=== PATIENT | male | born 1950 | race Caucasian/White ===

== ENCOUNTER 2020-05-22 11:53 | Emergency (ER) | payer OTHER, SELFPAY ==
[~2020-05-22] VITALS: Ht 180.3 cm; Wt 77.1 kg
[2020-05-22 11:53] VITALS: BP_SYST 193
[2020-05-22 12:52] LABS: BASOPHILS # (AUTO) 0.1 K/uL (0.0-0.2); BASOPHILS % (AUTO) 0.9 % (0.0-2.0); EOSINOPHILS # (AUTO) 0.4 K/uL (0.0-0.4); EOSINOPHILS % (AUTO) 6.4 % (0.0-4.0); HEMATOCRIT 42.4 % (36-54); HEMOGLOBIN 14.3 g/dL (14.0-18.0); LYMPHOCYTES # (AUTO) 1.9 K/uL (1.0-5.5); LYMPHOCYTES % (AUTO) 30.2 % (20.5-51.5); MEAN CORPUSCULAR HEMOGLOBIN 30 pg (27-31); MEAN CORPUSCULAR HGB CONC 34 % (32-36); MEAN CORPUSCULAR VOLUME 90 fL (79.0-98.0); MONOCYTES # (AUTO) 0.5 K/uL (0.0-1.0); MONOCYTES % (AUTO) 7.5 % (1.7-9.3); NEUTROPHILS # (AUTO) 3.5 K/uL (1.8-7.7); PLATELET COUNT (AUTO) 260 K/uL (130-430); RED BLOOD CELL COUNT(AUTO) 4.74 MIL/uL (4.2-6.2); RED CELL DISTRIBUTION WIDTH 14.5 % (9.0-15.0); WHITE BLOOD COUNT (AUTO) 6.3 K/uL (4.8-10.8)
[2020-05-22 12:57] LABS: BILIRUBIN,URINE NEGATIVE (NEGATIVE); BLOOD, URINE NEGATIVE (NEGATIVE); CLARITY/URINE CLEAR (CLEAR); COLOR,URINE YELLOW (YELLOW); GLUCOSE,URINE NEGATIVE (NEGATIVE); KETONES,URINE NEGATIVE (NEGATIVE); LEUKOCYTE ESTERASE ,URINE NEGATIVE (NEGATIVE); NITRITE, URINE NEGATIVE (NEGATIVE); PH,URINE 6.5 (5.0-8.0); PROTEIN URINE NEGATIVE (NEGATIVE); UROBILINOGEN,URINE 0.2 (0.2-1.0)
[2020-05-22 13:05] LABS: ANION GAP 9 (5-15); CALCIUM 9.2 mg/dL (8.4-11.0); CHLORIDE 105 mmol/L (98-107); CREATININE 1.29 mg/dL (0.55-1.30); GLUCOSE 126 mg/dL (70-99); POTASSIUM 4.2 mmol/L (3.5-5.1); SODIUM SERUM 141 mmol/L (136-145); UREA NITROGEN, BLOOD 9 mg/dL (8-21)
[2020-05-22 13:11] LABS: ALANINE AMINOTRANSFERASE 32 U/L (12-78); ASPARTATE AMINOTRANSFERASE 25 U/L (10-37); TOTAL BILIRUBIN 0.2 mg/dL (0.0-1.0)
[2020-05-22 13:15] LABS: CHOLESTEROL 208 mg/dL (<200); HDL CHOLESTEROL 44 mg/dL (>45); LDL CHOLESTEROL 141 mg/dL (<100); TRIGLYCERIDES 267 mg/dL (30-150)
[2020-05-22 13:16] LABS: ACETAMINOPHEN < 1 ug/mL (1-30); ALCOHOL, BLOOD < 3 mg/dL (<10); GFR AFRICAN AMERICAN 71 mL/min (>90)
[2020-05-22 13:17] LABS: BARBITURATE, URINE NEGATIVE (NEG <=200); BENZODIAZEPINE, URINE NEGATIVE (NEG <=150); CANNABINOID, URINE NEGATIVE (NEG <=50); COCAINE, URINE NEGATIVE (NEG <=150); METHAMPHETAMINES SCREEN,URINE NEGATIVE (NEG <=500); OPIATE, URINE NEGATIVE (NEG <=100); PHENCYCLIDINE SCREEN,URINE NEGATIVE (NEG <=25); UR TRICYCLIC ANTIDEPRESSANTS NEGATIVE (NEG <=300); URINE AMPHETAMINE NEGATIVE (NEG <=500); URINE METHADONE NEGATIVE (NEG <=200); URINE OXYCODONE SCREEN NEGATIVE (NEG <=100); URINE PROPOXYPHENE SCREEN NEGATIVE (NEG <=300)
[2020-05-22 15:36] VITALS: BP_SYST 182
== END 2020-05-22 15:38 ==
LOC: SED 11:53
DX: Z13.30 Encounter for screening examination for mental health and behavioral disorders, unspecified (principal); Z20.822 Contact with and (suspected) exposure to COVID-19
CPT/HCPCS: 36415; 80053; 80061; 80307; 81003; 83036; 85025; 87081; 87426; 99285; G0480; G0481; G0482

== ENCOUNTER 2020-06-13 12:10 | Emergency (ER) | payer OTHER ==
[~2020-06-13] VITALS: Ht 170.2 cm; Wt 77.1 kg
[2020-06-13 12:29] VITALS: BP_SYST 170
[2020-06-13 13:05] LABS: BASOPHILS % (AUTO) 0.5 % (0.0-2.0); EOSINOPHILS # (AUTO) 0.3 K/uL (0.0-0.4); EOSINOPHILS % (AUTO) 5.8 % (0.0-4.0); HEMATOCRIT 41.8 % (36-54); HEMOGLOBIN 14.4 g/dL (14.0-18.0); LYMPHOCYTES # (AUTO) 1.3 K/uL (1.0-5.5); LYMPHOCYTES % (AUTO) 22.2 % (20.5-51.5); MEAN CORPUSCULAR HEMOGLOBIN 31 pg (27-31); MEAN CORPUSCULAR HGB CONC 35 % (32-36); MEAN CORPUSCULAR VOLUME 90 fL (79.0-98.0); MONOCYTES # (AUTO) 0.5 K/uL (0.0-1.0); MONOCYTES % (AUTO) 7.6 % (1.7-9.3); NEUTROPHILS # (AUTO) 3.8 K/uL (1.8-7.7); NEUTROPHILS % (AUTO) 63.9 % (40.0-70.0); PLATELET COUNT (AUTO) 271 K/uL (130-430); RED BLOOD CELL COUNT(AUTO) 4.65 MIL/uL (4.2-6.2); RED CELL DISTRIBUTION WIDTH 14.1 % (9.0-15.0)
[2020-06-13 13:10] LABS: BILIRUBIN,URINE NEGATIVE (NEGATIVE); BLOOD, URINE NEGATIVE (NEGATIVE); CLARITY/URINE CLEAR (CLEAR); COLOR,URINE YELLOW (YELLOW); GLUCOSE,URINE NEGATIVE (NEGATIVE); KETONES,URINE NEGATIVE (NEGATIVE); LEUKOCYTE ESTERASE ,URINE NEGATIVE (NEGATIVE); NITRITE, URINE NEGATIVE (NEGATIVE); PH,URINE 6.5 (5.0-8.0); PROTEIN URINE NEGATIVE (NEGATIVE); UROBILINOGEN,URINE 0.2 (0.2-1.0)
[2020-06-13 13:21] LABS: ANION GAP 6 (5-15); CALCIUM 9.7 mg/dL (8.4-11.0); CHLORIDE 107 mmol/L (98-107); CREATININE 1.42 mg/dL (0.55-1.30); GLUCOSE 112 mg/dL (70-99); POTASSIUM 4.2 mmol/L (3.5-5.1); SODIUM SERUM 144 mmol/L (136-145); UREA NITROGEN, BLOOD 10 mg/dL (8-21)
[2020-06-13 13:22] LABS: GFR AFRICAN AMERICAN 64 mL/min (>90)
[2020-06-13 13:23] LABS: BARBITURATE, URINE NEGATIVE (NEG <=200); BENZODIAZEPINE, URINE NEGATIVE (NEG <=150); CANNABINOID, URINE NEGATIVE (NEG <=50); COCAINE, URINE NEGATIVE (NEG <=150); METHAMPHETAMINES SCREEN,URINE NEGATIVE (NEG <=500); OPIATE, URINE NEGATIVE (NEG <=100); PHENCYCLIDINE SCREEN,URINE NEGATIVE (NEG <=25); UR TRICYCLIC ANTIDEPRESSANTS NEGATIVE (NEG <=300); URINE AMPHETAMINE NEGATIVE (NEG <=500); URINE METHADONE NEGATIVE (NEG <=200); URINE OXYCODONE SCREEN NEGATIVE (NEG <=100); URINE PROPOXYPHENE SCREEN NEGATIVE (NEG <=300)
[2020-06-13 13:27] LABS: ALANINE AMINOTRANSFERASE 36 U/L (12-78); ALBUMIN 4.3 g/dL (3.4-4.8); ASPARTATE AMINOTRANSFERASE 22 U/L (10-37); TOTAL BILIRUBIN 0.3 mg/dL (0.0-1.0)
[2020-06-13 13:28] LABS: ACETAMINOPHEN < 1 ug/mL (1-30); ALCOHOL, BLOOD < 3 mg/dL (<10)
[2020-06-13 13:40] LABS: CHOLESTEROL 194 mg/dL (<200); HDL CHOLESTEROL 50 mg/dL (>45); LDL CHOLESTEROL 129 mg/dL (<100); TRIGLYCERIDES 168 mg/dL (30-150)
[2020-06-13 14:20] VITALS: BP_SYST 165
== END 2020-06-13 14:10 | disposition designated cancer center or children's hospital (05) ==
LOC: SED 12:10
DX: Z13.30 Encounter for screening examination for mental health and behavioral disorders, unspecified (principal); Z20.822 Contact with and (suspected) exposure to COVID-19
CPT/HCPCS: 36415; 80053; 80061; 80307; 81003; 83036; 85025; 87081; 87426; 99285; G0480; G0481; G0482

== ENCOUNTER 2021-02-04 15:34 | Emergency (ER) | payer OTHER, MEDICAID, SELFPAY | END 2021-02-05 01:30 | disposition home or self-care (01) | LOC: SED 15:34 | DX: F20.9 Schizophrenia, unspecified (principal) | CPT/HCPCS: 99283 ==

== ENCOUNTER 2021-10-07 10:02 | Inpatient (IN) | payer OTHER, MEDICAID ==
[~2021-10-07] VITALS: Ht 177.8 cm; Wt 75.3 kg
[2021-10-07 10:05] VITALS: BP_SYST 148
[2021-10-07] MEDS ORDERED: IBUP-1969 PO (10:30)
[2021-10-07] MEDS ORDERED: ARIP2TAB3 PO (10:30)
[2021-10-07] MEDS ORDERED: SER100 PO (10:30)
[2021-10-07 11:32] LABS: BASOPHILS % (AUTO) 0.3 % (0.0-2.0); EOSINOPHILS # (AUTO) 0.1 K/uL (0.0-0.4); EOSINOPHILS % (AUTO) 0.9 % (0.0-4.0); HEMATOCRIT 43.1 % (36-54); HEMOGLOBIN 14.7 g/dL (14.0-18.0); LYMPHOCYTES # (AUTO) 1.6 K/uL (1.0-5.5); LYMPHOCYTES % (AUTO) 20.3 % (20.5-51.5); MEAN CORPUSCULAR HEMOGLOBIN 30 pg (27-31); MEAN CORPUSCULAR HGB CONC 34 % (32-36); MEAN CORPUSCULAR VOLUME 89 fL (79.0-98.0); MONOCYTES # (AUTO) 0.6 K/uL (0.0-1.0); MONOCYTES % (AUTO) 8.2 % (1.7-9.3); NEUTROPHILS # (AUTO) 5.4 K/uL (1.8-7.7); NEUTROPHILS % (AUTO) 70.3 % (40.0-70.0); PLATELET COUNT (AUTO) 253 K/uL (130-430); RED BLOOD CELL COUNT(AUTO) 4.85 MIL/uL (4.2-6.2); RED CELL DISTRIBUTION WIDTH 14.4 % (9.0-15.0); WHITE BLOOD COUNT (AUTO) 7.7 K/uL (4.8-10.8)
[2021-10-07 11:59] LABS: INR 1.1 (0.80-1.20); PROTHROMBIN TIME 11.6 SECS (9.5-12.5)
[2021-10-07 12:05] LABS: ANION GAP 7 (5-15); CALCIUM 9.3 mg/dL (8.4-11.0); CHLORIDE 106 mmol/L (98-107); CREATININE 1.67 mg/dL (0.55-1.30); GLUCOSE 96 mg/dL (70-99); POTASSIUM 3.9 mmol/L (3.5-5.1); SODIUM SERUM 142 mmol/L (136-145); UREA NITROGEN, BLOOD 25 mg/dL (8-21)
[2021-10-07 12:11] LABS: GFR AFRICAN AMERICAN 53 mL/min (>90)
[2021-10-07 12:14] LABS: ALANINE AMINOTRANSFERASE 38 U/L (12-78); ALBUMIN 4.1 g/dL (3.4-4.8); ASPARTATE AMINOTRANSFERASE 27 U/L (10-37); TOTAL BILIRUBIN 0.4 mg/dL (0.0-1.0)
[2021-10-07 12:23] LABS: ACETAMINOPHEN < 1 ug/mL (1-30); ALCOHOL, BLOOD < 3 mg/dL (<10)
[2021-10-07] MEDS ORDERED: NACL 0.9% 1,000 ML IV ONE (13:30)
[2021-10-07] MEDS ORDERED: IBUPROFEN 600 MG TABLET PO PRN (15:15)
[2021-10-07 16:16] VITALS: BP_SYST 128
[2021-10-07] MEDS: LORazepam 2 MG/ML VIAL IVP PRN ×2 (17:41→23:45)
[2021-10-07] MEDS: D5/0.45 NS 1,000 ML IV SCH (17:54)
[2021-10-07] MEDS ORDERED: ARIPiprazole 2 MG TAB PO SCH (21:00)
[2021-10-07] MEDS: QUEtiapine FUMARATE 100 MG TABLET PO SCH (21:08)
[2021-10-08 00:15] VITALS: BP_SYST 120
[2021-10-08] MEDS: D5/0.45 NS 1,000 ML IV SCH ×4 (04:58→18:41)
[2021-10-08 08:00] VITALS: BP_SYST 124
[2021-10-08] MEDS: cefTRIAXone 1 GM in D5W 50 ML IV SCH (08:43)
[2021-10-08] MEDS: LORazepam 2 MG/ML VIAL IVP PRN ×3 (08:45→22:26)
[2021-10-08 12:51] VITALS: BP_SYST 125
[2021-10-08 12:54] LABS: BASOPHILS % (AUTO) 0.5 % (0.0-2.0); EOSINOPHILS # (AUTO) 0.1 K/uL (0.0-0.4); EOSINOPHILS % (AUTO) 0.9 % (0.0-4.0); HEMATOCRIT 44.3 % (36-54); HEMOGLOBIN 14.8 g/dL (14.0-18.0); LYMPHOCYTES # (AUTO) 1.3 K/uL (1.0-5.5); LYMPHOCYTES % (AUTO) 15.3 % (20.5-51.5); MEAN CORPUSCULAR HEMOGLOBIN 30 pg (27-31); MEAN CORPUSCULAR HGB CONC 34 % (32-36); MEAN CORPUSCULAR VOLUME 90 fL (79.0-98.0); MONOCYTES # (AUTO) 0.6 K/uL (0.0-1.0); MONOCYTES % (AUTO) 6.6 % (1.7-9.3); NEUTROPHILS # (AUTO) 6.4 K/uL (1.8-7.7); NEUTROPHILS % (AUTO) 76.7 % (40.0-70.0); PLATELET COUNT (AUTO) 246 K/uL (130-430); RED BLOOD CELL COUNT(AUTO) 4.93 MIL/uL (4.2-6.2); RED CELL DISTRIBUTION WIDTH 14.4 % (9.0-15.0); WHITE BLOOD COUNT (AUTO) 8.3 K/uL (4.8-10.8)
[2021-10-08 13:03] LABS: CALCIUM 8.4 mg/dL (8.4-11.0); CREATININE 1.25 mg/dL (0.55-1.30); POTASSIUM 3.9 mmol/L (3.5-5.1)
[2021-10-08 13:09] LABS: ALBUMIN 3.6 g/dL (3.4-4.8); TOTAL BILIRUBIN 0.3 mg/dL (0.0-1.0)
[2021-10-08 17:13] VITALS: BP_SYST 135
[2021-10-08] MEDS: OLANZapine 5 MG TABLET PO PRN (20:38)
[2021-10-08] MEDS: QUEtiapine FUMARATE 100 MG TABLET PO SCH (20:38)
[2021-10-08 21:00] VITALS: BP_SYST 137
[2021-10-09] MEDS: D5/0.45 NS 1,000 ML IV SCH ×3 (05:05→20:36)
[2021-10-09] MEDS: LORazepam 2 MG/ML VIAL IVP PRN (06:13)
[2021-10-09 07:46] LABS: BASOPHILS % (AUTO) 0.5 % (0.0-2.0); EOSINOPHILS # (AUTO) 0.2 K/uL (0.0-0.4); HEMATOCRIT 41.4 % (36-54); LYMPHOCYTES # (AUTO) 1.6 K/uL (1.0-5.5); LYMPHOCYTES % (AUTO) 31.6 % (20.5-51.5); MEAN CORPUSCULAR HEMOGLOBIN 30 pg (27-31); MEAN CORPUSCULAR HGB CONC 34 % (32-36); MEAN CORPUSCULAR VOLUME 90 fL (79.0-98.0); MONOCYTES # (AUTO) 0.4 K/uL (0.0-1.0); MONOCYTES % (AUTO) 7.4 % (1.7-9.3); NEUTROPHILS % (AUTO) 57.5 % (40.0-70.0); PLATELET COUNT (AUTO) 212 K/uL (130-430); RED BLOOD CELL COUNT(AUTO) 4.62 MIL/uL (4.2-6.2); RED CELL DISTRIBUTION WIDTH 13.8 % (9.0-15.0); WHITE BLOOD COUNT (AUTO) 5.1 K/uL (4.8-10.8)
[2021-10-09 08:04] VITALS: BP_SYST 133
[2021-10-09 08:33] LABS: CALCIUM 8.3 mg/dL (8.4-11.0); CREATININE 1.15 mg/dL (0.55-1.30)
[2021-10-09 08:37] LABS: POTASSIUM 3.5 mmol/L (3.5-5.1)
[2021-10-09] MEDS: cefTRIAXone 1 GM in D5W 50 ML IV SCH (10:27)
[2021-10-09 14:32] VITALS: BP_SYST 122
[2021-10-09 17:01] VITALS: BP_SYST 134
[2021-10-09 20:00] VITALS: BP_SYST 161
[2021-10-09] MEDS: QUEtiapine FUMARATE 100 MG TABLET PO SCH (20:35)
[2021-10-09] MEDS ORDERED: cloNIDine HCL 0.1 MG TABLET PO PRN (21:15)
[2021-10-10 01:45] VITALS: BP_SYST 131
[2021-10-10] MEDS: D5/0.45 NS 1,000 ML IV SCH ×3 (05:12→20:49)
[2021-10-10 08:00] VITALS: BP_SYST 143
[2021-10-10] MEDS: cefTRIAXone 1 GM in D5W 50 ML IV SCH (09:56)
[2021-10-10] MEDS: OLANZapine 5 MG TABLET PO PRN (09:56)
[2021-10-10 12:35] VITALS: BP_SYST 135
[2021-10-10 16:56] VITALS: BP_SYST 130
[2021-10-10 20:00] VITALS: BP_SYST 153
[2021-10-10] MEDS: QUEtiapine FUMARATE 100 MG TABLET PO SCH (20:48)
[2021-10-10 23:07] LABS: BILIRUBIN,URINE NEGATIVE (NEGATIVE); BLOOD, URINE NEGATIVE (NEGATIVE); CLARITY/URINE CLEAR (CLEAR); COLOR,URINE YELLOW (YELLOW); GLUCOSE,URINE NEGATIVE (NEGATIVE); KETONES,URINE TRACE (NEGATIVE); LEUKOCYTE ESTERASE ,URINE NEGATIVE (NEGATIVE); NITRITE, URINE NEGATIVE (NEGATIVE); PH,URINE 6.5 (5.0-8.0); PROTEIN URINE NEGATIVE (NEGATIVE); UROBILINOGEN,URINE 0.2 (0.2-1.0)
[2021-10-11 02:13] VITALS: BP_SYST 136
[2021-10-11] MEDS: D5/0.45 NS 1,000 ML IV SCH ×3 (05:45→22:42)
[2021-10-11 06:50] LABS: BASOPHILS % (AUTO) 0.8 % (0.0-2.0); EOSINOPHILS # (AUTO) 0.1 K/uL (0.0-0.4); EOSINOPHILS % (AUTO) 2.7 % (0.0-4.0); HEMATOCRIT 40.7 % (36-54); HEMOGLOBIN 14.2 g/dL (14.0-18.0); LYMPHOCYTES # (AUTO) 1.9 K/uL (1.0-5.5); LYMPHOCYTES % (AUTO) 38.3 % (20.5-51.5); MEAN CORPUSCULAR HEMOGLOBIN 31 pg (27-31); MEAN CORPUSCULAR HGB CONC 35 % (32-36); MEAN CORPUSCULAR VOLUME 87 fL (79.0-98.0); MONOCYTES # (AUTO) 0.3 K/uL (0.0-1.0); MONOCYTES % (AUTO) 6.4 % (1.7-9.3); NEUTROPHILS # (AUTO) 2.6 K/uL (1.8-7.7); NEUTROPHILS % (AUTO) 51.8 % (40.0-70.0); PLATELET COUNT (AUTO) 248 K/uL (130-430); RED BLOOD CELL COUNT(AUTO) 4.65 MIL/uL (4.2-6.2); RED CELL DISTRIBUTION WIDTH 13.3 % (9.0-15.0)
[2021-10-11 07:33] LABS: CALCIUM 8.4 mg/dL (8.4-11.0); CREATININE 1.03 mg/dL (0.55-1.30); POTASSIUM 3.7 mmol/L (3.5-5.1)
[2021-10-11 08:00] VITALS: BP_SYST 137
[2021-10-11] MEDS: OLANZapine 5 MG TABLET PO PRN (09:02)
[2021-10-11] MEDS: cefTRIAXone 1 GM in D5W 50 ML IV SCH (09:02)
[2021-10-11 12:01] VITALS: BP_SYST 152
[2021-10-11 15:24] VITALS: BP_SYST 116
[2021-10-11 20:00] VITALS: BP_SYST 151
[2021-10-11] MEDS: QUEtiapine FUMARATE 100 MG TABLET PO SCH (22:14)
[2021-10-12 05:41] VITALS: BP_SYST 144
[2021-10-12] MEDS: D5/0.45 NS 1,000 ML IV SCH ×2 (05:45→13:45)
[2021-10-12] MEDS: cefTRIAXone 1 GM in D5W 50 ML IV SCH (09:00)
== END 2021-10-12 20:15 | DRG 70 ==
LOC: SED 10:02 → STU 13:31 → SMU 10-11 10:43
PROVIDERS: ADMIT Internal Medicine; ATTEND Internal Medicine
DX: G93.41 Metabolic encephalopathy (principal); N17.0 Acute kidney failure with tubular necrosis; E87.2 Acidosis; E86.0 Dehydration; F20.9 Schizophrenia, unspecified; I10 Essential (primary) hypertension; Z79.899 Other long term (current) drug therapy
CPT/HCPCS: 36415; 70450-TC; 71045; 76376; 80048; 80053; 81003; 83605; 84484; 85025; 85610-TC; 87040; 87081; 87086; 95816; 96360; 99285; G0378; G0480; G0481; G0482; J0696; J2060; J7030; J7060

== ENCOUNTER 2022-12-02 08:14 | Inpatient (IN) | payer OTHER, MEDICAID ==
[~2022-12-02] VITALS: Ht 180.3 cm; Wt 81.2 kg
[~2022-12-02 08:14] MED LIST: ARIP5TAB42 PO; IBUP-1969 PO; SER100 PO
[2022-12-02 08:41] VITALS: BP_SYST 152; PULSE 71; RESP 18; TEMP 98.1; O2SAT 95
[2022-12-02] MEDS ORDERED: MEMA5TAB42 PO (09:40)
[2022-12-02] MEDS ORDERED: ARIP30TA22 PO (09:40)
[2022-12-02] MEDS ORDERED: QUET100T34 PO (09:40)
[2022-12-02] MEDS ORDERED: LOSA50TA28 PO (09:40)
[2022-12-02 09:52] LABS: BASOPHILS % (AUTO) 0.5 % (0.0-2.0); EOSINOPHILS % (AUTO) 0.2 % (0.0-4.0); HEMATOCRIT 43.9 % (36-54); HEMOGLOBIN 14.5 g/dL (14.0-18.0); LYMPHOCYTES # (AUTO) 1.3 K/uL (1.0-5.5); LYMPHOCYTES % (AUTO) 13.7 % (20.5-51.5); MEAN CORPUSCULAR HEMOGLOBIN 30 pg (27-31); MEAN CORPUSCULAR HGB CONC 33 % (32-36); MEAN CORPUSCULAR VOLUME 90 fL (79.0-98.0); MONOCYTES # (AUTO) 0.7 K/uL (0.0-1.0); MONOCYTES % (AUTO) 6.9 % (1.7-9.3); NEUTROPHILS # (AUTO) 7.6 K/uL (1.8-7.7); NEUTROPHILS % (AUTO) 78.7 % (40.0-70.0); PLATELET COUNT (AUTO) 227 K/uL (130-430); RED BLOOD CELL COUNT(AUTO) 4.89 MIL/uL (4.2-6.2); RED CELL DISTRIBUTION WIDTH 15.1 % (9.0-15.0); WHITE BLOOD COUNT (AUTO) 9.7 K/uL (4.8-10.8)
[2022-12-02 10:03] LABS: ANION GAP 12 (5-15); CALCIUM 9.3 mg/dL (8.4-11.0); CARBON DIOXIDE 27 mmol/L (23-29); CHLORIDE 110 mmol/L (98-107); CREATININE 1.17 mg/dL (0.55-1.30); GLUCOSE 124 mg/dL (74-106); POTASSIUM 3.4 mmol/L (3.5-5.1); SODIUM SERUM 149 mmol/L (136-145); UREA NITROGEN, BLOOD 14 mg/dL (8-21)
[2022-12-02 10:06] LABS: INR 1.1 (0.80-1.20); PROTHROMBIN TIME 11.6 SECS (9.5-12.5)
[2022-12-02 10:11] LABS: ALANINE AMINOTRANSFERASE 70 U/L (12-78); ALBUMIN 4.1 g/dL (3.4-4.8); ASPARTATE AMINOTRANSFERASE 171 U/L (10-37); TOTAL BILIRUBIN 0.7 mg/dL (0.0-1.0); TOTAL PROTEIN, SERUM 7.8 g/dL (6.4-8.3)
[2022-12-02] MEDS ORDERED: POTASSIUM CHLORIDE 20 MEQ/PKT PACKET PO ONE (11:15)
[2022-12-02] MEDS ORDERED: ACETAMINOPHEN 325 MG TABLET PO PRN ×2 (11:15→11:45)
[2022-12-02] MEDS ORDERED: ONDANSETRON HCL 4 MG/2 ML VIAL IVP PRN (11:15)
[2022-12-02] MEDS ORDERED: POTASSIUM CHLORIDE 20 MEQ/PKT PACKET ONE (14:09)
[2022-12-02 14:30] VITALS: BP_SYST 165; PULSE 95; RESP 18; TEMP 98.8; O2SAT 97
[2022-12-02 15:30] VITALS: BP_SYST 165; PULSE 95; RESP 18; TEMP 98.8
[2022-12-02 19:00] VITALS: BP_SYST 142; PULSE 88; RESP 18; TEMP 97.8; O2SAT 98
[2022-12-02 20:48] VITALS: BP_SYST 141; PULSE 68; RESP 18; TEMP 97.9; O2SAT 98
[2022-12-02] MEDS ORDERED: AZITHROMYCIN 500 MG in NS 250 ML IV ONE (23:45)
[2022-12-02] MEDS ORDERED: IBUPROFEN 600 MG TABLET PO PRN (23:45)
[2022-12-03] VITALS: BP_SYST 157; PULSE 60; RESP 18; TEMP 98.1; O2SAT 98
[2022-12-03] MEDS ORDERED: AZITHROMYCIN 500 MG/VIAL (ZITHROMAX) IV ONE (00:52)
[2022-12-03 01:37] VITALS: O2SAT 98
[2022-12-03 08:00] VITALS: BP_SYST 130; PULSE 65; RESP 16; TEMP 97.3; O2SAT 97
[2022-12-03] MEDS: LOSARTAN POTASSIUM 50 MG TABLET (COZAAR) PO SCH (10:10)
[2022-12-03] MEDS: MEMANTINE HCL 5 MG TABLET PO SCH (10:10)
[2022-12-03] MEDS: ARIPiprazole 2 MG TAB PO SCH ×2 (10:20→20:22)
[2022-12-03 20:00] VITALS: BP_SYST 154; PULSE 72; RESP 18; TEMP 97.9; O2SAT 97
[2022-12-03] MEDS: QUEtiapine FUMARATE 100 MG TABLET PO SCH (20:22)
[2022-12-03] MEDS ORDERED: QUEtiapine FUMARATE 100 MG TABLET PO SCH (21:00)
[2022-12-04] MEDS: MEMANTINE HCL 5 MG TABLET PO SCH (08:36)
[2022-12-04] MEDS: LOSARTAN POTASSIUM 50 MG TABLET (COZAAR) PO SCH (08:37)
[2022-12-04] MEDS: ARIPiprazole 2 MG TAB PO SCH ×2 (09:00→20:11)
[2022-12-04 12:00] VITALS: BP_SYST 128; PULSE 66; RESP 18; TEMP 97.4; O2SAT 98
[2022-12-04 13:11] VITALS: O2SAT 97
[2022-12-04 16:00] VITALS: BP_SYST 130; PULSE 68; RESP 18; TEMP 97.3; O2SAT 99
[2022-12-04 20:00] VITALS: BP_SYST 151; PULSE 62; RESP 18; TEMP 97.5; O2SAT 98
[2022-12-04] MEDS: QUEtiapine FUMARATE 100 MG TABLET PO SCH (20:11)
[2022-12-04 22:12] VITALS: BP_SYST 151; PULSE 62; RESP 18; TEMP 97.5; O2SAT 98
[2022-12-05] VITALS (7 sets, daily range): BP systolic 121–160; PULSE 55–86; RESP 16–20; TEMP 96.5–98.1; O2SAT 95–99
[2022-12-05] MEDS: MEMANTINE HCL 5 MG TABLET PO SCH (09:31)
[2022-12-05] MEDS: ARIPiprazole 2 MG TAB PO SCH (09:31)
[2022-12-05] MEDS: LOSARTAN POTASSIUM 50 MG TABLET (COZAAR) PO SCH (09:32)
[2022-12-05 13:34] LABS: BASOPHILS % (AUTO) 0.5 % (0.0-2.0); EOSINOPHILS # (AUTO) 0.3 K/uL (0.0-0.4); EOSINOPHILS % (AUTO) 4.2 % (0.0-4.0); HEMATOCRIT 43.6 % (36-54); HEMOGLOBIN 14.3 g/dL (14.0-18.0); LYMPHOCYTES # (AUTO) 2.2 K/uL (1.0-5.5); LYMPHOCYTES % (AUTO) 30.6 % (20.5-51.5); MEAN CORPUSCULAR HEMOGLOBIN 30 pg (27-31); MEAN CORPUSCULAR HGB CONC 33 % (32-36); MEAN CORPUSCULAR VOLUME 91 fL (79.0-98.0); MONOCYTES # (AUTO) 0.5 K/uL (0.0-1.0); MONOCYTES % (AUTO) 6.8 % (1.7-9.3); NEUTROPHILS # (AUTO) 4.1 K/uL (1.8-7.7); NEUTROPHILS % (AUTO) 57.9 % (40.0-70.0); PLATELET COUNT (AUTO) 236 K/uL (130-430); RED CELL DISTRIBUTION WIDTH 14.9 % (9.0-15.0); WHITE BLOOD COUNT (AUTO) 7.1 K/uL (4.8-10.8)
[2022-12-05 13:54] LABS: ANION GAP 9 (5-15); CALCIUM 8.8 mg/dL (8.4-11.0); CARBON DIOXIDE 26 mmol/L (23-29); CHLORIDE 102 mmol/L (98-107); CREATININE 1.17 mg/dL (0.55-1.30); GLUCOSE 84 mg/dL (74-106); POTASSIUM 3.6 mmol/L (3.5-5.1); SODIUM SERUM 137 mmol/L (136-145); UREA NITROGEN, BLOOD 16 mg/dL (8-21)
[2022-12-05] MEDS ORDERED: ROCPM1 IV (17:19)
== END 2022-12-05 15:54 | disposition home or self-care (01) | DRG 194 ==
LOC: SED 08:14 → SMU 11:14
PROVIDERS: ADMIT Family Medicine; ATTEND Family Medicine
DX: J18.9 Pneumonia, unspecified organism (principal); F03.918 Unspecified dementia, unspecified severity, with other behavioral disturbance; G30.9 Alzheimer's disease, unspecified; I10 Essential (primary) hypertension; G47.00 Insomnia, unspecified; F99 Mental disorder, not otherwise specified
CPT/HCPCS: 36415; 70450-TC; 71045; 76376; 80048; 80053; 83605; 83880; 84484; 85025; 85610-TC; 85730-TC; 87040; 93005; 96365; 97110-GP; 97116-GP; 97163-GP; 97530-GP; 99285; J0456; J0696; J7030; J7050; J7060